=== PATIENT | male | born 1980 | race Caucasian/White ===

== ENCOUNTER 2021-01-12 21:30 | Emergency (ER) | payer MEDICARE, MEDICAID ==
[~2021-01-12] VITALS: Ht 172.7 cm; Wt 125.0 kg
[~2021-01-12 21:30] MED LIST: BUSP5TAB3 PO; ESCI-8 PO; VENL37.589 PO; ZIPR40CA14 PO
[2021-01-12] MEDS ORDERED: diphenhydrAMINE 25mg capsule PO ONE (21:40)
[2021-01-12 22:47] LABS: BASOPHILS % (AUTO) 0.4 % (0-1); EOSINOPHILS # (AUTO) 0.1 X10'3 (0-0.9); EOSINOPHILS % (AUTO) 1.8 % (0-6); HEMOGLOBIN 12.6 g/dl (14.0-17.9); LYMPHOCYTES # (AUTO) 1.3 X10'3 (1.1-4.8); LYMPHOCYTES % (AUTO) 19.2 % (21-51); MEAN CORPUSCULAR HEMOGLOBIN 27.3 PG (27.0-31.0); MEAN CORPUSCULAR HGB CONC 32.3 g/dL (33.0-36.5); MEAN CORPUSCULAR VOLUME 84.4 FL (78-98); MEAN PLATELET VOLUME 9.8 FL (7.4-10.4); MONOCYTES # (AUTO) 0.5 X10'3 (0-0.9); MONOCYTES % (AUTO) 8.2 % (2-12); NEUTROPHILS # (AUTO) 4.6 X10'3 (1.8-7.7); NEUTROPHILS % (AUTO) 70.4 % (42-75); PLATELET COUNT 315 X10'3 (140-440); RED BLOOD COUNT 4.62 X10'6 (4.70-6.10); RED CELL DISTRIBUTION WIDTH 14.2 % (11.5-14.5); WHITE BLOOD COUNT 6.6 X10'3 (4.5-11.0)
[2021-01-12 23:02] LABS: ALANINE AMINOTRANSFERASE 79 U/L (12-78); ALBUMIN 3.8 G/DL (3.4-5.0); ALBUMIN/GLOBULIN RATIO 0.8 (1.1-1.5); ALKALINE PHOSPHATASE 162 IU/L (46-116); ANION GAP 15 (8-16); ASPARTATE AMINO TRANSFERASE 76 U/L (10-37); BILIRUBIN,TOTAL 0.7 MG/DL (0.1-1.0); BLOOD UREA NITROGEN 17 MG/DL (7-18); BUN/CREATININE RATIO 13.9 (5.4-32.0); CALCIUM 8.5 MG/DL (8.5-10.1); CHLORIDE 102 MMOL/L (99-107); CREATININE 1.22 MG/DL (0.60-1.10); ETHANOL < 0.010 GM/DL (0.0-0.010); GLUCOSE 122 MG/DL (70-104); SODIUM 141 MMOL/L (135-145); TOTAL CARBON DIOXIDE 24.2 MMOL/L (24-32); TOTAL PROTEIN 8.8 G/DL (6.4-8.2); eGFR 66 ML/MIN
[2021-01-12 23:04] LABS: POTASSIUM 2.9 MMOL/L (3.5-5.1)
[2021-01-12] MEDS ORDERED: NO HOME MEDS (23:36)
[2021-01-12] MEDS ORDERED: olanzapine 10mg tablet PO ONE (23:45)
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
[2021-01-13] MEDS ORDERED: potassium Cl 20 mEq SR tablet PO STA (00:21)
--- NOTE | 2021-01-13 01:48 | NUR ---
The patient appears to be sleeping
--- NOTE | 2021-01-13 03:03 | NUR ---
THe patient was up to use the bathroom and now is crying and yelling out. He is complaining that his eyes hurt.
--- NOTE | 2021-01-13 03:08 | NUR ---
The patient escorted to the shower by bike technician and security staff.
[2021-01-13 03:29] LABS: URINE AMPHETAMINE SCREEN POSITIVE (Neg); URINE BARBITUATE SCREEN NEGATIVE (Neg); URINE BENZODIAZEPINES SCREEN NEGATIVE (Neg); URINE CANNABINOID SCREEN NEGATIVE (Neg); URINE COCAINE SCREEN NEGATIVE (Neg); URINE METHADONE SCREEN NEGATIVE (Neg); URINE OPIATE SCREEN NEGATIVE (Neg); URINE PHENCYCLIDINE SCREEN NEGATIVE (Neg)
[2021-01-13 03:36] LABS: CLARITY,URINE CLEAR (Clear); COLOR,URINE YELLOW (Yellow); GLUCOSE, URINE NEGATIVE (Neg); KETONES,URINE NEGATIVE (Neg); LEUKOCYTE ESTERASE ,URINE NEGATIVE (Neg); NITRITES, URINE NEGATIVE (Neg); OCCULT BLOOD,URINE NEGATIVE (Neg); PH,URINE 6.5 (4.8-8.0); PROTEIN,URINE NEGATIVE (Neg); UROBILINOGEN,URINE 0.2 E.U/dL (0.2-1.0)
--- NOTE | 2021-01-13 04:23 | NUR ---
Patient covid swab returned positive and the MD and charge attendant were made aware.
--- NOTE | 2021-01-13 04:33 | NUR ---
The patient appears to be sleeping
[2021-01-13 04:47] LABS: UA COLLECTION TYPE CLN CATCH MIDSTREAM
--- NOTE | 2021-01-13 06:40 | NUR ---
Pt lying on back with eye closed. Resp equal and nonlabored.
--- NOTE | 2021-01-13 10:18 | NUR ---
Pt lying on R side with eye closed. Resp equal and nonlabored.
--- NOTE | 2021-01-13 12:05 | NUR ---
SLEEPING ON RIGHT SIDE
--- NOTE | 2021-01-13 12:45 | NUR ---
SITTING UP EATING LUNCH
--- NOTE | 2021-01-13 13:30 | NUR ---
SLEEPING ON BACK, RESPIRATIONS NON LABORED AND EVEN.
[2021-01-13] MEDS: ziprasidone 20mg capsule PO SCH ×2 (13:57→21:02)
--- NOTE | 2021-01-13 14:30 | NUR ---
SITTING UP EATING
--- NOTE | 2021-01-13 15:30 | NUR ---
SLEEPING ON RIGHT SIDE, NO DISTRESS NOTED
--- NOTE | 2021-01-13 16:30 | NUR ---
SLEEPING ON BACK, RESPIRATIONS EVEN AND NON-LABORED.
--- NOTE | 2021-01-13 18:30 | NUR ---
SITTING UP EATING DINNER
--- NOTE | 2021-01-13 19:30 | NUR ---
PT SLEEPING ON RIGHT SIDE, NO DISTRESS NOTED.
--- NOTE | 2021-01-13 20:30 | NUR ---
PT SLEEPING ON RIGHT SIDE.
--- NOTE | 2021-01-13 21:30 | NUR ---
PT SLEEPING LEFT SIDE, RESPIRATIONS EVEN AND NON-LABORED.
--- NOTE | 2021-01-13 22:30 | NUR ---
SLEEPING ON LEFT SIDE, NO DISTRESS NOTED.
[2021-01-14] MEDS: ziprasidone 20mg capsule PO SCH ×2 (08:50→20:13)
--- NOTE | 2021-01-15 03:15 | NUR ---
pt sleeping, lying on his right side with blankets covering to his shouders.
--- NOTE | 2021-01-15 04:18 | NUR ---
PATIENT'S PACKET WAS SENT TO [facility].
--- NOTE | 2021-01-15 04:34 | NUR ---
PT NOTED TO BE AWAKE IN THE ROOM. PT REQUESTING WARM BLNKETS. PROVIDED 2 BLANKETS AND ICE WATER.
--- NOTE | 2021-01-15 07:55 | NUR ---
pt sleeping no distress noted.
[2021-01-15] MEDS: ziprasidone 20mg capsule PO SCH ×2 (08:41→20:00)
[2021-01-15 08:44] VITALS: BP 120/83
--- NOTE | 2021-01-15 13:40 | NUR ---
Pt resting comfortably with eyes closed. Respirations equal and nonlabored.
--- NOTE | 2021-01-15 17:00 | NUR ---
[facility] finished evaluating pt. Upholding 5150 at this time. Pt calm and cooperative.
--- NOTE | 2021-01-16 07:30 | NUR ---
Pt's water refilled. Acting appropriately.
[2021-01-16] MEDS: ziprasidone 20mg capsule PO SCH (08:00)
--- NOTE | 2021-01-16 08:30 | NUR ---
Pt lying on bed, resting comfortably.
== END 2021-01-16 17:00 | disposition home or self-care (01) ==
LOC: ER 21:31
DX: U07.1 COVID-19 (principal); R45.851 Suicidal ideations; F12.90 Cannabis use, unspecified, uncomplicated; F15.90 Other stimulant use, unspecified, uncomplicated; F19.90 Other psychoactive substance use, unspecified, uncomplicated; Z72.89 Other problems related to lifestyle; Z56.0 Unemployment, unspecified; Z88.5 Allergy status to narcotic agent
CPT/HCPCS: 36415; 80053; 80305; 80320; 81003; 84132; 85025; 87635; 99285; C9803; Q0163

== ENCOUNTER 2021-08-27 12:45 | Emergency (ER) | payer MEDICARE, MEDICAID ==
[~2021-08-27] VITALS: Ht 170.2 cm; Wt 107.7 kg
[~2021-08-27 12:45] MED LIST changes: -BUSP5TAB3 PO; -ESCI-8 PO; +NO HOME MEDS; -VENL37.589 PO; -ZIPR40CA14 PO
[2021-08-27 12:51] VITALS: BP 140/88
== END 2021-08-27 14:50 | disposition home or self-care (01) ==
LOC: ER 12:45
DX: J06.9 Acute upper respiratory infection, unspecified (principal); Z20.822 Contact with and (suspected) exposure to COVID-19; Z56.0 Unemployment, unspecified; Z88.5 Allergy status to narcotic agent; Z79.899 Other long term (current) drug therapy
CPT/HCPCS: 87502; 87503; 87635; 99283; C9803

== ENCOUNTER 2024-07-14 17:39 | Emergency (ER) | payer MEDICARE, OTHER ==
[~2024-07-14] VITALS: Ht 170.2 cm; Wt 79.5 kg
[~2024-07-14 17:39] MED LIST changes: +BENZ1TAB78 PO; -NO HOME MEDS; +SERT-433 PO; +ZIPR20CA12 PO
[2024-07-14] MEDS ORDERED: CEPH-585 PO (18:19)
[2024-07-14] MEDS: cephalexin 250mg capsule PO ONE (18:27)
[2024-07-14 18:32] VITALS: BP 140/98; PULSE 99; RESP 16; TEMP 98.6; O2SAT 99
== END 2024-07-14 18:37 | disposition home or self-care (01) ==
LOC: ER 17:39
DX: F15.10 Other stimulant abuse, uncomplicated (principal); Z00.00 Encounter for general adult medical examination without abnormal findings; L03.116 Cellulitis of left lower limb; Z88.5 Allergy status to narcotic agent
CPT/HCPCS: 99283